=== PATIENT | female | born 1965 | race Two or more races ===

== ENCOUNTER → 2017-10-16 | Outpatient (CLI) | payer OTHER ==
[~2017-10-16] MED LIST: AMOX-559 PO; AMOX500T10 PO; BENA10TA53; ETON1VAG7; FLUC150T40 PO
[2017-10-16 12:31] LABS: PLATELET COUNT, AUTOMATED 169 K/uL (150-450)
== END ==
LOC: LAB 12:06
PROVIDERS: ATTEND Internal Medicine Nephrology
DX: I10 Essential (primary) hypertension (principal); Z90.5 Acquired absence of kidney; D50.9 Iron deficiency anemia, unspecified; R30.0 Dysuria
CPT/HCPCS: 36415; 81001; 82040; 82247; 82310; 82374; 82435; 82565; 82728; 82947; 83540; 83550; 84075; 84132; 84155; 84295; 84450; 84460; 84520; 85025

== ENCOUNTER → 2017-11-27 | Outpatient (CLI) | payer OTHER | LOC: LAB 13:32 | PROVIDERS: ATTEND Nurse Practitioner | DX: I10 Essential (primary) hypertension (principal); Q60.0 Renal agenesis, unilateral; R63.5 Abnormal weight gain; R39.198 Other difficulties with micturition | CPT/HCPCS: 36415; 81001; 82310; 82374; 82435; 82565; 82947; 84132; 84295; 84520 ==